=== PATIENT | female | born 1965 | race American Indian/Alaskan Native ===

== ENCOUNTER 2018-02-19 08:17 | Outpatient (CLI) | payer BC | END 2018-02-19 08:18 | disposition home or self-care (01) | LOC: VAS 08:17 | PROVIDERS: ATTEND Internal Medicine | DX: R60.9 Edema, unspecified (principal); I10 Essential (primary) hypertension | CPT/HCPCS: 93970 ==

== ENCOUNTER 2020-05-04 09:54 | Outpatient (CLI) | payer BC ==
--- NOTE | 2020-05-05 08:24 | Mammography Report ---
DIGITAL SCREENING MAMMOGRAM WITH CAD, 05/04/2020 INDICATION: Routine screening mammography. TECHNIQUE: Digital bilateral 2D mammography was obtained in the craniocaudal and mediolateral obliq ue projections. This examination was interpreted with the benefit of Computer-Aided Detection analysi s. COMPARISON: 03/06/2013, 01/02/2012 FINDINGS: Breast Density: The breasts are extremely dense, which lowers the sensitivity of mammography. There is no evidence of dominant mass, suspicious calcifications or architectural distortion in eithe r breast. IMPRESSION: Follow up recommendation: Routine yearly BI-RADS Category 1: Negative. A "normal" or negative report should not discourage follow up or biopsy of a clinically significant f inding. A written summary of these findings will be mailed to the patient. The patient will be entered into a mammography reporting system which will generate a reminder letter for the patient's next appointmen t at the appropriate interval. The [employer] recommends yearly mammograms starting at age 40 and continuing as l leticia as a woman is in good health. Breast MRI is recommended for women with an approximate 20-25% or greater lifetime risk of breast cancer, including women with a strong family history of breast or ova farhan cancer or who have been treated for Hodgkin's disease. Signer Name: Tita Johansen MD Signed: 05/05/2020 8:19 AM Workstation Name: [id number]
== END 2020-05-04 09:55 | disposition home or self-care (01) ==
LOC: SPVWC 09:54
PROVIDERS: ATTEND Internal Medicine
DX: Z12.31 Encounter for screening mammogram for malignant neoplasm of breast (principal); N64.89 Other specified disorders of breast
CPT/HCPCS: 77067

== ENCOUNTER 2021-05-18 21:14 | Observation (INO) | payer BC ==
--- NOTE | 2021-05-18 21:45 | Emergency Department Report ---
ED Chest Pain HPI - General Chief Complaint: Chest Pain Stated Complaint: HIGHBLOOD PRESSURE/HEADACHE PUI?: No Time Seen by Provider: 05/18/21 21:29 Source: patient Mode of arrival: Ambulatory Limitations: No Limitations - History of Present Illness Initial Comments: Patient is a 55-year-old female that presents emergency room with complaints of chest pain, headache. Patient states that her symptoms started approximately 1 hour ago. Patient states that she checked her blood pressure at home and it was 200/100. Patient states her chest pain is a 10 out of 10. Patient states is a tightness feeling. Patient states she feels anxious and jittery. Patient states her chest pain is better with rest and worse with exertion. Patient states that she checks her blood pressure at home and her blood pressure was 200/100 so she came to the hospital because of her symptoms. Patient denies shortness of breath. Patient denies fever and chills. Patient states she has a past medical history of hypertension, hyperlipidemia and a stroke. Patient states she is taking lisinopril and Crestor. Patient that she is compliant with her medications. Patient denies recent travel. Patient denies recent international travel. P atient denies exposure to the novel coronavirus. Patient denies sick contacts. Patient denies fever and chills. Patient denies cough. Patient denies diarrhea. Patient denies coming in contact with anybody with symptoms of the novel coronavirus. Complaint: chest pain -: Sudden Onset: during rest Pain Location: left chest Pain Radiation: none Severity: severe Severity scale (0 -10): 10 Quality: tightness, heaviness Consistency: constant Improves With: rest Worsens With: exertion re: sense of impending doom. denies: nausea, vomting, diaphoresis, dyspnea Other Symptoms: denies: cough, fever, syncope, rash, acid taste in mouth, leg swelling, palpitations, burping Treatments Prior to Arrival: none - Related Data Home Medications Medication Instructions Recorded Confirmed Last Taken Lisinopril/Hydrochlorothiazide 1 tab PO QDAY 04/14/15 04/14/15 Unknown [Zestoretic 20-25 mg] Rosuvastatin (Nf) [Crestor] 20 mg PO QHS 04/14/15 04/14/15 Unknown Allergies Allergy/AdvReac Type Severity Reaction Status Date / Time No Known Allergies Allergy Unverified 04/14/15 21:31 Heart Score - HEART Score History: Moderately suspicious EKG: Non-specific Age: 45-65 Risk factors: > 3 risk factors or hx of atherosclerotic disease Troponin: < normal limit HEART Score: 5 - EKG Read Time Time EKG Completed: 21:26 EKG Read Time: 21:29 ED Review of Systems ROS: Stated complaint: HIGHBLOOD PRESSURE/HEADACHE Other details as noted in HPI Constitutional: denies: chills, fever Eyes: denies: eye pain, eye discharge, vision change ENT: denies: ear pain, throat pain Respiratory: denies: cough, shortness of breath, wheezing Cardiovascular: chest pain. denies: palpitations Endocrine: no symptoms reported Gastrointestinal: denies: abdominal pain, nausea, diarrhea Genitourinary: denies: urgency, dysuria, discharge Musculoskeletal: denies: back pain, joint swelling, arthralgia Skin: denies: rash, lesions Neurological: headache. denies: weakness, paresthesias Psychiatric: anxiety. denies: depression Hematological/Lymphatic: denies: easy bleeding, easy bruising ED Past Medical Hx - Past Medical History Previous Medical History?: Yes Hx Hypertension: Yes Hx CVA: Yes - Surgical History Past Surgical History?: No - Family History Family history: no significant - Social History Smoking Status: Never Smoker Substance Use Type: None - Medications Home Medications: Home Medications Medication Instructions Recorded Confirmed Last Taken Type Lisinopril/Hydrochlorothiazide 1 tab PO QDAY 04/14/15 04/14/15 Unknown History [Zestoretic 20-25 mg] Rosuvastatin (Nf) [Crestor] 20 mg PO QHS 04/14/15 04/14/15 Unknown History ED Physical Exam - General Limitations: No Limitations General appearance: alert, in no apparent distress - Head Head exam: Present: atraumatic, normocephalic - Eye Eye exam: Present: normal appearance - ENT ENT exam: Present: mucous membranes moist - Neck Neck exam: Present: normal inspection - Respiratory Respiratory exam: Present: normal lung sounds bilaterally. Absent: respiratory distress, wheezes, rales, chest wall tenderness - Cardiovascular Cardiovascular Exam: Present: regular rate, normal rhythm. Absent: systolic murmur, diastolic murmur, rubs, gallop - GI/Abdominal GI/Abdominal exam: Present: soft, normal bowel sounds - Extremities Exam Extremities exam: Present: normal inspection - Back Exam Back exam: Present: normal inspection - Neurological Exam Neurological exam: Present: alert, oriented X3 - Psychiatric Psychiatric exam: Present: normal affect, normal mood - Skin Skin exam: Present: warm, dry, intact, normal color. Absent: rash ED Course Vital Signs 05/18/21 05/18/21 05/18/21 21:17 21:50 22:01 Pulse Rate 103 H 98 H 91 H Respiratory 22 25 H 22 Rate Blood Pressure 211/104 193/97 Blood Pressure [Left] O2 Sat by Pulse 99 99 98 Oximetry 05/18/21 05/18/21 05/18/21 22:12 22:15 22:31 Pulse Rate 88 92 H 85 Respiratory 20 18 19 Rate Blood Pressure 171/98 187/96 Blood Pressure 171/98 [Left] O2 Sat by Pulse 99 100 100 Oximetry 05/18/21 05/18/21 05/18/21 22:36 22:37 22:45 Pulse Rate 87 68 Respiratory 20 19 Rate Blood Pressure 183/102 183/102 Blood Pressure [Left] O2 Sat by Pulse 99 100 Oximetry 05/18/21 23:01 Pulse Rate 60 Respiratory 14 Rate Blood Pressure 173/90 Blood Pressure [Left] O2 Sat by Pulse 100 Oximetry - Reevaluation(s) Reevaluation #1: Patient states her chest pain is better. Patient states it has resolved. Patient states she is not as anxious. Patient's blood pressure has improved. Patient's lung sounds are clear. 05/18/21 22:46 Reevaluation #2: I discussed all results with patient. I discussed plan of care with patient. Patient agrees with plan of care and admission. Patient to be admitted to the hospitalist service. 05/18/21 23:46 - Consultations Consultation #1: Hospitalist consulted for admission. Hospitalist to admit patient. 05/18/21 23:46 DARYL score - Daryl Score Age > 65: (0) No Aspirin use within the Past 7 Days: (1) Yes 3 or more CAD Risk Factors: (1) Yes 2 or more Angina events in past 24 hrs: (0) No Known CAD with more than 50% Stenosis: (0) No Elevated Cardiac Markers: (0) No ST Deviation Greater than 0.5mm: (0) No DARYL Score: 2 ED Medical Decision Making - Lab Data Result diagrams: 05/18/21 21:52 05/18/21 21:52 - EKG Data -: EKG Interpreted by Me EKG shows normal: sinus rhythm, axis, intervals, QRS complexes, ST-T waves Rate: normal - Radiology Data Radiology results: report reviewed, image reviewed interpreted by me: Chest x-ray: No pneumonia, no pneumothorax, no foreign body, no osseous findings, no acute findings CHEST 1 VIEW 05/18/2021 9:09 PM INDICATION / CLINICAL INFORMATION: Chest Pain. COMPARISON: None available. FINDINGS: SUPPORT DEVICES: None. HEART / MEDIASTINUM: No significant abnormality. LUNGS / PLEURA: No significant pulmonary or pleural abnormality. No pn eumothorax. ADDITIONAL FINDINGS: No significant additional findings. IMPRESSION: 1. No acute findings. - Medical Decision Making Patient is a 55-year-old female that presents emergency room with complaints of chest pain, anxiety and headache. Patient found to have hypertensive emergency in triage. Patient seen in triage and eventually transferred to the acute care room. After the initial evaluation, the patient was given aspirin and Lopressor. Patient's symptoms and blood pressure dramatically improved. Patient had an EKG done which was negative for acute finding. Patient EKG shows normal ST. Patient had a chest x-ray done which was negative for acute findings. I personally reviewed the EKG and chest x-ray. Patient had labs done which were essentially unremarkable. Patient's troponins were normal and negative. Patient admitted to the hospital service for further evaluation treatment and rule out ACS. Patient's heart score is elevated and will require inpatient rule out and treatment. Critical care time documented due to the multiple reassessments, prolonged time at the bedside, interpretation of diagnostics and labs. - Differential Diagnosis Chest pain, ACS, hypertension, anxiety, hypertensive emergency, Critical Care Time: Yes Critical care time in (mins) excluding proc time.: 35 Critical care attestation.: If time is entered above; I have spent that time in minutes in the direct care of this critically ill patient, excluding procedure time. Critical Care Time: 35 minutes ED Disposition Clinical Impression: Hypertensive emergency, Malignant hypertension Chest pain Qualifiers: Chest pain type: unspecified Qualified Code(s): R07.9 - Chest pain, unspecified Headache Qualifiers: Headache type: unspecified Headache chronicity pattern: acute headache Intractability: not intractable Qualified Code(s): R51.9 - Headache, unspecified Disposition: 09 ADMITTED INPATIENT Is pt being admited?: Yes Does the pt Need Aspirin: No Condition: Critical Instructions: Hypertension (ED) Time of Disposition: 23:52
[2021-05-18] MEDS ORDERED: ASPIRIN 325 MG TAB PO ONE (21:48)
[2021-05-18] MEDS ORDERED: METOPROLOL TARTRATE 5 MG/5 ML INJ IV ONE (21:52)
--- NOTE | 2021-05-18 22:25 | XRay Report ---
CHEST 1 VIEW 05/18/2021 9:09 PM INDICATION / CLINICAL INFORMATION: Chest Pain. COMPARISON: None available. FINDINGS: SUPPORT DEVICES: None. HEART / MEDIASTINUM: No significant abnormality. LUNGS / PLEURA: No significant pulmonary or pleural abnormality. No pneumothorax. ADDITIONAL FINDINGS: No significant additional findings. IMPRESSION: 1. No acute findings. Signer Name: Jimmie Cruz MD Signed: 05/18/2021 10:21 PM Workstation Name: [id number]
[2021-05-18 22:43] LABS: Hematocrit 41.1 % (30.3-42.9); Hemoglobin 12.9 gm/dl (10.1-14.3); Mean Corpuscular HGB Conc 31 % (30-34); Mean Corpuscular Volume 88 fl (79-97); Platelet Count 260 K/mm3 (140-440); Red Blood Count 4.69 M/mm3 (3.65-5.03); Red Cell Distribution Width 14.1 % (13.2-15.2)
[2021-05-18 22:46] LABS: Alanine Aminotransferase 15 units/L (7-56); Albumin 4.3 g/dL (3.9-5); BUN/Creatinine Ratio 11; Blood Urea Nitrogen 11 mg/dL (7-17); Calcium 9.8 mg/dL (8.4-10.2); Hemolysis Index 69; INR 0.9 (0.87-1.13)
[2021-05-18 22:47] LABS: Partial Thromboplastin Time 49.9 Sec. (24.2-36.6)
[2021-05-19 00:46] LABS: Total Cells Counted 100
[2021-05-19 00:47] LABS: Platelet Estimate Consistent w Auto; RBC Morphology Normal
[2021-05-19] MEDS ORDERED: ONDANSETRON 4 MG/2 ML INJ IV PRN (01:05)
[2021-05-19] MEDS ORDERED: MORPHINE 4 MG/1 ML INJ IV PRN ×2 (01:05)
[2021-05-19] MEDS ORDERED: NITROGLYCERIN 0.4 MG TAB SUBL SL PRN (01:05)
[2021-05-19] MEDS ORDERED: MORPHINE 2 MG/1 ML INJ IV PRN (01:05)
[2021-05-19] MEDS ORDERED: ACETAMINOPHEN 325 MG TAB PO PRN ×2 (01:05)
[2021-05-19] MEDS ORDERED: traMADol 50 MG TAB PO PRN (01:05)
[2021-05-19] MEDS ORDERED: MAGNESIUM HYDROXIDE (MOM) ORAL LIQD UDC PO PRN (01:05)
--- NOTE | 2021-05-19 01:18 | History and Physical Report ---
History of Present Illness Date of examination: 05/19/21 Date of admission: 05/19/2021 Chief complaint: Chest pain History of present illness: 55-year-old -[place] female with known history of hypertension, hyperlipidemia and a previous stroke presenting to the emergency room today complaining of left-sided chest pain with some associated headache. Symptoms are said to have started about an hour prior to reporting to the emergency room. Patient indicates that she checked her blood pressure and the systolic was in the 200s and diastolic in the low 100s. Chest pain pain was about 10/10 in severity and felt like tightness. Pain was worse on exertion and feels better upon resting. She denies any diaphoresis, no nausea vomiting, no abdominal pain, no fever or chills. Patient denies any recent travel and no sick contacts. Denies any contact with anyone with COVID-19. Upon arrival in the emergency room blood pressure was quite elevated and she was given some Lopressor and aspirin with significant improvement in her blood pressure. Work-up in the emergency room today including chest x-ray, EKG were unremarkable. Patient being admitted for chest pain evaluation. Past History Past Medical History: hypertension, hyperlipidemia, stroke Past Surgical History: No surgical history Social history: no significant social history Family history: no significant family history Medications and Allergies Allergies Allergy/AdvReac Type Severity Reaction Status Date / Time No Known Allergies Allergy Verified 05/19/21 01:15 Home Medications Medication Instructions Recorded Confirmed Last Taken Type Lisinopril/Hydrochlorothiazide 1 tab PO QDAY 04/14/15 04/14/15 Unknown History [Zestoretic 20-25 mg] Rosuvastatin (Nf) [Crestor] 20 mg PO QHS 04/14/15 04/14/15 Unknown History Active Meds: Active Medications Acetaminophen (Acetaminophen 325 Mg Tab) 650 mg PO Q4H PRN PRN Reason: Pain MILD(1-3)/Fever >100.5/[facility] Review of Systems Constitutional: no fever, no chills Ears, nose, mouth and throat: no nasal congestion, no sore throat Cardiovascular: chest pain, no palpitations, no lightheadedness Respiratory: no cough, no shortness of breath Gastrointestinal: no abdominal pain, no nausea, no vomiting, no diarrhea Genitourinary Female: no pelvic pain, no flank pain, no dysuria, no hematuria Musculoskeletal: no neck pain, no low back pain Integumentary: no rash, no pruritis Neurological: headaches, no confusion Psychiatric: no anxiety, no depression Endocrine: no polyphagia, no polydipsia, no polyuria, no nocturia Exam - Constitutional Vitals: Temp Pulse Resp BP Pulse Ox 98.1 F 60 14 173/90 100 05/19/21 00:27 05/18/21 23:01 05/18/21 23:01 05/18/21 23:01 05/18/21 23:01 General appearance: Present: no acute distress, well-nourished - EENT Eyes: Present: PERRL, EOM intact. Absent: scleral icterus ENT: hearing intact, clear oral mucosa, dentition normal - Neck Neck: Present: supple, normal ROM - Respiratory Respiratory effort: normal Respiratory: bilateral: CTA - Cardiovascular Rhythm: regular Heart Sounds: Present: S1 & S2. Absent: gallop, systolic murmur, diastolic murmur, rub, click - Extremities Extremities: no ischemia, pulses intact, pulses symmetrical, No edema, normal temperature, normal color, Full ROM Peripheral Pulses: within normal limits - Abdominal General gastrointestinal: Present: soft, non-tender, non-distended, normal bowel sounds. Absent: mass - Integumentary Integumentary: Present: clear, warm, dry, normal turgor. Absent: rash - Musculoskeletal Musculoskeletal: strength equal bilaterally - Psychiatric Psychiatric: appropriate mood/affect, intact judgment & insight, memory intact, cooperative - Neurologic Neurologic: CNII-XII intact, no focal deficits, moves all extremities HEART Score - HEART Score History: Moderately suspicious EKG: Non-specific Age: 45-65 Risk factors: > 3 risk factors or hx of atherosclerotic disease Troponin: Troponin T < 0.010 ng/mL (0.00-0.029) 05/18/21 21:52 Troponin: < normal limit HEART Score: 5 Results - Labs CBC & Chem 7: 05/19/21 01:21 05/19/21 01:21 Labs: Abnormal lab results 05/18/21 05/18/21 05/18/21 Range/Units 21:52 21:52 21:52 Seg Neuts % (Manual) 18.0 L (40.0-70.0) % Lymphocytes % (Manual) 75.0 H (13.4-35.0) % Seg Neutrophils # Man 1.2 L (1.8-7.7) K/mm3 APTT 49.9 H (24.2-36.6) Sec. Glucose 124 H (65-100) mg/dL Assessment and Plan - Patient Problems (1) Chest pain Current Visit: Yes Status: Acute Qualifiers: Chest pain type: unspecified Qualified Code(s): R07.9 - Chest pain, unspecified Plan to address problem: Patient admitted and placed on telemetry. We will check serial cardiac enzymes. Patient placed on daily aspirin, sublingual nitroglycerin and IV morphine as needed for chest pain. Will await further evaluation by cardiology. (2) Headache Current Visit: Yes Status: Acute Qualifiers: Headache type: unspecified Headache chronicity pattern: acute headache Intractability: not intractable Qualified Code(s): R51.9 - Headache, unspecified Plan to address problem: Possibly secondary to the elevated blood pressure. We will give analgesic medications as needed We will also aim for blood pressure control. (3) Malignant hypertension Current Visit: Yes Status: Acute Plan to address problem: We will resume routine home medications once reconciled. We will monitor vital signs closely. (4) DVT prophylaxis Current Visit: Yes Status: Acute Plan to address problem: Patient placed on subcutaneous heparin. (5) Full code status Current Visit: Yes Status: Acute Plan to address problem: Patient is a full code.
[2021-05-19 02:01] LABS: Basophils # (Auto) 0.1 K/mm3 (0.0-0.1); Basophils % (Auto) 1.1 % (0.0-1.8); Eosinophils % (Auto) 0.7 % (0.0-4.3); Hematocrit 40.5 % (30.3-42.9); Hemoglobin 13.1 gm/dl (10.1-14.3); Lymphocytes # (Auto) 2.4 K/mm3 (1.2-5.4); Lymphocytes % (Auto) 42.4 % (13.4-35.0); Mean Corpuscular HGB Conc 32 % (30-34); Mean Corpuscular Volume 85 fl (79-97); Monocytes # (Auto) 0.3 K/mm3 (0.0-0.8); Monocytes % (Auto) 5.5 % (0.0-7.3); Platelet Count 272 K/mm3 (140-440); Red Blood Count 4.78 M/mm3 (3.65-5.03); Red Cell Distribution Width 14.2 % (13.2-15.2)
[2021-05-19 02:20] LABS: BUN/Creatinine Ratio 11; Blood Urea Nitrogen 11 mg/dL (7-17); Calcium 10.3 mg/dL (8.4-10.2); Hemolysis Index 8
[2021-05-19] MEDS ORDERED: HEPARIN 5,000 UNIT/1 ML VIAL SUB-Q SCH (06:00)
[2021-05-19] MEDS ORDERED: REGADENOSON 0.4 MG/5 ML INJ IV ONE (06:48)
--- NOTE | 2021-05-19 09:24 | Progress Note ---
Assessment and Plan Assessment and plan: History of present illness: 55-year-old -[place] female with known history of hypertension, hyp erlipidemia and a previous stroke presenting to the emergency room today complaining of left-sided chest pain with some associated headache. Symptoms are said to have started about an hour prior to reporting to the emergency room. Patient indicates that she checked her blood pressure and the systolic was in the 200s and diastolic in the low 100s. Chest pain pain was about 10/10 in severity and felt like tightness. Pain was worse on exertion and feels better upon resting. She denies any diaphoresis, no nausea vomiting, no abdominal pain, no fever or chills. Patient denies any recent travel and no sick contacts. Denies any contact with anyone with COVID-19. Upon arrival in the emergency room blood pressure was quite elevated and she was given some Lopressor and aspirin with significant improvement in her blood pressure. Work-up in the emergency room today including chest x-ray, EKG were unremarkable. Patient being admitted for chest pain evaluation. Hospital Course to Date: Assessment and Plan: (1) Chest pain Current Visit: Yes Status: Acute Qualifiers: Chest pain type: unspecified Qualified Code(s): R07.9 - Chest pain, unspecified Plan to address problem: Patient admitted and placed on telemetry. We will check serial cardiac enzymes. Patient placed on daily aspirin, sublingual nitroglycerin and IV morphine as needed for chest pain. Will await further evaluation by cardiology. (2) Headache Current Visit: Yes Status: Acute Qualifiers: Headache type: unspecified Headache chronicity pattern: acute headache Intractability: not intractable Qualified Code(s): R51.9 - Headache, unspecified Plan to address problem: Possibly secondary to the elevated blood pressure. We will give analgesic medications as needed We will also aim for blood pressure control. (3) Malignant hypertension Current Visit: Yes Status: Acute Plan to address problem: We will resume routine home medications once reconciled. We will monitor vital signs closely. (4) DVT prophylaxis Current Visit: Yes Status: Acute Plan to address problem: Patient placed on subcutaneous heparin. (5) Full code status Current Visit: Yes Status: Acute Plan to address problem: Patient is a full code. History Interval history: no complaints on encounter Hospitalist Physical - Physical exam Narrative exam: General appearance: Present: no acute distress, well-nourished - EENT Eyes: Present: PERRL, EOM intact. Absent: scleral icterus ENT: hearing intact, clear oral mucosa, dentition normal - Neck Neck: Present: supple, normal ROM - Respiratory Respiratory effort: normal Respiratory: bilateral: CTA - Cardiovascular Rhythm: regular Heart Sounds: Present: S1 & S2. Absent: gallop, systolic murmur, diastolic murmur, rub, click - Extremities Extremities: no ischemia, pulses intact, pulses symmetrical, No edema, normal temperature, normal color, Full ROM Peripheral Pulses: within normal limits - Abdominal General gastrointestinal: Present: soft, non-tender, non-distended, normal bowel sounds. Absent: mass - Integumentary Integumentary: Present: clear, warm, dry, normal turgor. Absent: rash - Musculoskeletal Musculoskeletal: strength equal bilaterally - Psychiatric Psychiatric: appropriate mood/affect, intact judgment & insight, memory intact, cooperative - Neurologic Neurologic: CNII-XII intact, no focal deficits, moves all extremities - Constitutional Vitals: Temp Pulse Resp BP Pulse Ox 97.5 F L 98 H 16 117/60 100 05/19/21 08:00 05/19/21 08:00 05/19/21 08:00 05/19/21 08:00 05/19/21 08:59 General appearance: Present: no acute distress, well-nourished HEART Score - HEART Score EKG: Non-specific Age: 45-65 Risk factors: > 3 risk factors or hx of atherosclerotic disease Troponin: Troponin T < 0.010 ng/mL (0.00-0.029) 05/19/21 07:40 Troponin: < normal limit Results - Labs CBC & Chem 7: 05/19/21 01:21 05/19/21 01:21 Labs: Laboratory Last Values WBC 5.6 K/mm3 (4.5-11.0) 05/19/21 01:21 RBC 4.78 M/mm3 (3.65-5.03) 05/19/21 01:21 Hgb 13.1 gm/dl (10.1-14.3) 05/19/21 01:21 Hct 40.5 % (30.3-42.9) 05/19/21 01:21 MCV 85 fl (79-97) 05/19/21 01:21 MCH 27 pg (28-32) L 05/19/21 01:21 MCHC 32 % (30-34) 05/19/21 01:21 RDW 14.2 % (13.2-15.2) 05/19/21 01:21 Plt Count 272 K/mm3 (140-440) 05/19/21 01:21 Lymph % (Auto) 42.4 % (13.4-35.0) H 05/19/21 01:21 [place] % (Auto) 5.5 % (0.0-7.3) 05/19/21 01:21 Eos % (Auto) 0.7 % (0.0-4.3) 05/19/21 01:21 Baso % (Auto) 1.1 % (0.0-1.8) 05/19/21 01:21 Lymph # (Auto) 2.4 K/mm3 (1.2-5.4) 05/19/21 01:21 [place] # (Auto) 0.3 K/mm3 (0.0-0.8) 05/19/21 01:21 Eos # (Auto) 0.0 K/mm3 (0.0-0.4) 05/19/21 01:21 Baso # (Auto) 0.1 K/mm3 (0.0-0.1) 05/19/21 01:21 Add Manual Diff Complete 05/18/21 21:52 Total Counted 100 05/18/21 21:52 Seg Neutrophils % 50.3 % (40.0-70.0) 05/19/21 01:21 Seg Neuts % (Manual) 18.0 % (40.0-70.0) L 05/18/21 21:52 Lymphocytes % (Manual) 75.0 % (13.4-35.0) H 05/18/21 21:52 Monocytes % (Manual) 3.0 % (0.0-7.3) 05/18/21 21:52 Eosinophils % (Manual) 4.0 % (0.0-4.3) 05/18/21 21:52 Nucleated RBC % Not Reportable 05/18/21 21:52 Seg Neutrophils # 2.8 K/mm3 (1.8-7.7) 05/19/21 01:21 Seg Neutrophils # Man 1.2 K/mm3 (1.8-7.7) L 05/18/21 21:52 Band Neutrophils # 0.0 K/mm3 05/18/21 21:52 Lymphocytes # (Manual) 5.0 K/mm3 (1.2-5.4) 05/18/21 21:52 Abs React Lymphs (Man) 0.0 K/mm3 05/18/21 21:52 Monocytes # (Manual) 0.2 K/mm3 (0.0-0.8) 05/18/21 21:52 Eosinophils # (Manual) 0.3 K/mm3 (0.0-0.4) 05/18/21 21:52 Basophils # (Manual) 0.0 K/mm3 (0.0-0.1) 05/18/21 21:52 Metamyelocytes # 0.0 K/mm3 05/18/21 21:52 Myelocytes # 0.0 K/mm3 05/18/21 21:52 Promyelocytes # 0.0 K/mm3 05/18/21 21:52 Blast Cells # 0.0 K/mm3 05/18/21 21:52 WBC Morphology Not Reportable 05/18/21 21:52 Hypersegmented Neuts Not Reportable 05/18/21 21:52 Hyposegmented Neuts Not Reportable 05/18/21 21:52 Hypogranular Neuts Not Reportable 05/18/21 21:52 Smudge Cells Not Reportable 05/18/21 21:52 Toxic Granulation Not Reportable 05/18/21 21:52 Toxic Vacuolation Not Reportable 05/18/21 21:52 Dohle Bodies Not Reportable 05/18/21 21:52 Pelger-Huet Anomaly Not Reportable 05/18/21 21:52 Jeremiah Rods Not Reportable 05/18/21 21:52 Platelet Estimate Consistent w auto 05/18/21 21:52 Clumped Platelets Not Reportable 05/18/21 21:52 Plt Clumps, EDTA Not Reportable 05/18/21 21:52 Large Platelets Not Reportable 05/18/21 21:52 Giant Platelets Not Reportable 05/18/21 21:52 Platelet Satelliting Not Reportable 05/18/21 21:52 Plt Morphology Comment Not Reportable 05/18/21 21:52 RBC Morphology Normal 05/18/21 21:52 Dimorphic RBCs Not Reportable 05/18/21 21:52 Polychromasia Not Reportable 05/18/21 21:52 Hypochromasia Not Reportable 05/18/21 21:52 Poikilocytosis Not Reportable 05/18/21 21:52 Anisocytosis Not Reportable 05/18/21 21:52 Microcytosis Not Reportable 05/18/21 21:52 Macrocytosis Not Reportable 05/18/21 21:52 Spherocytes Not Reportable 05/18/21 21:52 Pappenheimer Bodies Not Reportable 05/18/21 21:52 Sickle Cells Not Reportable 05/18/21 21:52 Target Cells Not Reportable 05/18/21 21:52 Tear Drop Cells Not Reportable 05/18/21 21:52 Ovalocytes Not Reportable 05/18/21 21:52 Helmet Cells Not Reportable 05/18/21 21:52 [place] Bodies Not Reportable 05/18/21 21:52 [place] Rings Not Reportable 05/18/21 21:52 [place] Cells Not Reportable 05/18/21 21:52 Bite Cells Not Reportable 05/18/21 21:52 Crenated Cell Not Reportable 05/18/21 21:52 Elliptocytes Not Reportable 05/18/21 21:52 Acanthocytes (Spur) Not Reportable 05/18/21 21:52 Rouleaux Not Reportable 05/18/21 21:52 Hemoglobin C Crystals Not Reportable 05/18/21 21:52 Schistocytes Not Reportable 05/18/21 21:52 Malaria parasites Not Reportable 05/18/21 21:52 [place] Bodies Not Reportable 05/18/21 21:52 Hem Pathologist Commnt No 05/18/21 21:52 PT 13.2 Sec. (12.2-14.9) 05/18/21 21:52 INR 0.90 (0.87-1.13) 05/18/21 21:52 APTT 49.9 Sec. (24.2-36.6) H 05/18/21 21:52 Sodium 138 mmol/L (137-145) 05/19/21 01:21 Potassium 4.6 mmol/L (3.6-5.0) D 05/19/21 01:21 Chloride 98.9 mmol/L (98-107) 05/19/21 01:21 Carbon Dioxide 26 mmol/L (22-30) 05/19/21 01:21 Anion Gap 18 mmol/L 05/19/21 01:21 BUN 11 mg/dL (7-17) 05/19/21 01:21 Creatinine 1.0 mg/dL (0.6-1.2) 05/19/21 01:21 Estimated GFR > 60 ml/min 05/19/21 01:21 BUN/Creatinine Ratio 11 % 05/19/21 01:21 Glucose 112 mg/dL (65-100) H 05/19/21 01:21 Calcium 10.3 mg/dL (8.4-10.2) H 05/19/21 01:21 Total Bilirubin 0.20 mg/dL (0.1-1.2) 05/18/21 21:52 AST 24 units/L (5-40) 05/18/21 21:52 ALT 15 units/L (7-56) 05/18/21 21:52 Alkaline Phosphatase 90 units/L (35-129) 05/18/21 21:52 Troponin T < 0.010 ng/mL (0.00-0.029) 05/19/21 07:40 Total Protein 7.1 g/dL (6.3-8.2) 05/18/21 21:52 Albumin 4.3 g/dL (3.9-5) 05/18/21 21:52 Albumin/Globulin Ratio 1.5 % 05/18/21 21:52 Active Medications - Current Medications Current Medications: Generic Name Dose Route Start Last Admin Trade Name Freq PRN Reason Stop Dose Admin Acetaminophen 650 mg 05/19/21 01:05 Acetaminophen 325 Mg Tab PO Q4H PRN Pain MILD(1-3)/Fever >100.5/[facility]ENN Aspirin 325 mg 05/20/21 10:00 Aspirin Ec 325 Mg Tab PO QDAY [facility] Atorvastatin Calcium 40 mg 05/19/21 22:00 Atorvastatin 40 Mg Tab PO QHS [facility] Heparin Sodium (Porcine) 5,000 unit 05/19/21 06:00 05/19/21 05:58 Heparin 5,000 Unit/1 Ml Vial SUB-Q 5,000 unit Q8HR [facility] Administration Hydrochlorothiazide 25 mg 05/19/21 10:00 05/19/21 09:07 Hydrochlorothiazide 25 Mg Tab PO Not Given QDAY [facility] Lisinopril 20 mg 05/19/21 10:00 Lisinopril 20 Mg Tab PO QDAY [facility] Magnesium Hydroxide 30 ml 05/19/21 01:05 Magnesium Hydroxide (Mom) Oral Liqd Udc PO Q4H PRN Constipation Morphine Sulfate 2 mg 05/19/21 01:05 Morphine 2 Mg/1 Ml Inj IV Q4H PRN Pain, Moderate (4-6) Morphine Sulfate 4 mg 05/19/21 01:05 Morphine 4 Mg/1 Ml Inj IV Q4H PRN Pain , Severe (7-10) Morphine Sulfate 2 mg 05/19/21 01:05 Morphine 4 Mg/1 Ml Inj IV Q5MIN PRN Chest Pain unrelieved by NTG Nitroglycerin 0.4 mg 05/19/21 01:05 Nitroglycerin 0.4 Mg Tab Subl SL Q5M PRN Chest Pain Ondansetron HCl 4 mg 05/19/21 01:05 Ondansetron 4 Mg/2 Ml Inj IV Q8H PRN Nausea And Vomiting Sodium Chloride 10 ml 05/19/21 10:00 05/19/21 09:07 Sodium Chloride 0.9% 10 Ml Flush Syringe IV Not Given BID [facility]ADELINE Sodium Chloride 10 ml 05/19/21 01:05 Sodium Chloride 0.9% 10 Ml Flush Syringe IV PRN PRN LINE FLUSH Tramadol HCl 50 mg 05/19/21 01:05 Tramadol 50 Mg Tab PO Q6H PRN Pain, Moderate (4-6)
[2021-05-19] MEDS ORDERED: LISINOPRIL 20 MG TAB PO SCH (10:00)
[2021-05-19] MEDS ORDERED: hydroCHLOROthiazide 25 MG TAB PO SCH (10:00)
[2021-05-19] MEDS ORDERED: NON-FORMULARY EACH (Lisinopril/Hydrochlorothiazide [Zestoretic 20-25 Mg] 1 EACH Tablet) PO SCH (10:00)
--- NOTE | 2021-05-19 12:30 | Nuclear Medicine Report ---
APPROVED REPORT Exam: Nuclear Stress Test Indication: Chest pain [id number] Ht: 5 ft 6 in Wt: 157 lbs BSA: 1.80 m2 HR: 45 bpmBMI: 25.33 Rhythm: Sinus Bradycardia Stress Test Details Stress Test: Exercise stress testing was performed using a Marcos protocol. HR Resting HR: 57 bpm Max HR Achieved: 139 bpm Max Heart Rate (APMHR): 167 bpm Target HR (85% APMHR): 141 bpm % of APMHR: 83 Recovery HR: 61 bpm HR response to stress: Normal HR response to stress BP Resting BP: 149/84 mmHg Max BP: 203/94 mmHg Recovery BP: 157/68 mmHg BP response to stress: Abnormal hypertensive response to stress. ECG Resting ECG: Sinus Bradycardia Stress ECG: Sinus Tachycardia ST Change: None Arrhythmia: None Recovery ECG: Sinus Rhythm Recovery ST Change: None Recovery Arrhythmia: None Clinical Reason for Termination: Fatigue Stress Symptoms: None Exercise duration: 9 min 30 sec Exercise capacity: 10.6 METs Overall Exercise Capacity for Age: Good Stress ECG Conclusion Very good exercise capacity, no chest pain, no ST changes and no significant arrhythmias with exercise. Myocardial perfusion images are pending. NM EXAM: Myocardial Perfusion REST/STRESS Imaging Protocol: Rest Tc-99m/Stress Tc-99m 1 day Resting Data Rest SPECT myocardial perfusion imaging was performed in supine position 45 minutes following the intravenous injection of 10 mCi of Tc-99m Myoview. Time of rest injection: 0645 Exercise Stress Time of stress injection: 10:53:54 Gated Stress SPECT was performed 30 minutes after stress injection. The images were gated to evaluate regional wall motion and calculate left ventricular ejection fraction. Study Quality Study: excellent Lung Uptake: Normal Study Data TID = 1.24. Perfusion Wall Motion The rest and stress images show normal left ventricular wall motion. Nuclear Conclusion ECG Findings: negative for ischemia Clinical Findings: negative for ischemia Nuclear Findings: negative for ischemia Exercise Capacity: normal Left Ventricular Function: normal Risk Study: low Normal rest and stress perfusion images, normal left ventricular systolic function, ejection fraction 63%. Normal study. Conclusion Very good exercise capacity, no chest pain, no ST changes and no significant arrhythmias with exercise. Myocardial perfusion images are pending.
--- NOTE | 2021-05-19 12:37 | Consultation ---
History of Present Illness Consult date: 05/19/21 Consult reason: chest pain History of present illness: The patient is a 55-year-old woman with a long history of poorly controlled h ypertension, no prior cardiac history. She presented to the hospital with a chief complaint of lightheadedness which occurred while she was resting at home. When her symptoms began, she decided to take her blood pressure which on several measurements continue to climb from 160 systolic to the 180s. She then came to the emergency room where her systolic blood pressure was over 200. She states that she felt very anxious and also experienced mild mild pressure in her chest, in the emergency room she was evaluated and referred for admission. Initial ECG in the emergency room was a mild sinus tachycardia with no ST or T wave changes. This morning, she has a sinus bradycardia with nonspecific lateral T wave changes. Serial troponin levels x4 were normal. The patient has a very active lifestyle, states that she runs 6 miles about 2-3 times weekly, and participates in marathons. She has done her physical exercise twice during this week, and there has been no limitation in her exercise capacity, and no symptoms on extreme physical exertion. Today, she underwent an exercise thallium stress test, during which she exercised for 9 minutes and 30 seconds of a Marcos protocol. There was no chest pain, and no ST changes of ischemia. Myocardial perfusion images showed normal myocardial perfusion, and normal left ventricular systolic function. Past History Past Medical History: hypertension, hyperlipidemia, stroke Past Surgical History: No surgical history Social history: no significant social history Family history: no significant family history Medications and Allergies Allergies Allergy/AdvReac Type Severity Reaction Status Date / Time No Known Allergies Allergy Verified 05/19/21 01:15 Home Medications Medication Instructions Recorded Confirmed Last Taken Type Aspirin [Aspirin BABY CHEW TAB] 162 mg PO QDAY 05/19/21 05/19/21 05/18/21 History Furosemide [Lasix] 40 mg PO BID PRN 05/19/21 05/19/21 Unknown History hydroCHLOROthiazide [HCTZ] 25 mg PO QDAY 05/19/21 05/19/21 05/18/21 History lisinopriL [Zestril TAB] 40 mg PO QDAY 05/19/21 05/19/21 05/18/21 History Active Meds: Active Medications Acetaminophen (Acetaminophen 325 Mg Tab) 650 mg PO Q4H PRN PRN Reason: Pain MILD(1-3)/Fever >100.5/[place] Aspirin (Aspirin Ec 325 Mg Tab) 325 mg PO QDAY [facility] Atorvastatin Calcium (Atorvastatin 40 Mg Tab) 40 mg PO QHS [facility] Heparin Sodium (Porcine) (Heparin 5,000 Unit/1 Ml Vial) 5,000 unit SUB-Q Q8HR [facility] Last Admin: 05/19/21 05:58 Dose: 5,000 unit Documented by: Hydrochlorothiazide (Hydrochlorothiazide 25 Mg Tab) 25 mg PO QDAY [facility] Last Admin: 05/19/21 09:07 Dose: Not Given Documented by: Lisinopril (Lisinopril 20 Mg Tab) 20 mg PO QDAY [facility] Last Admin: 05/19/21 10:29 Dose: Not Given Documented by: Magnesium Hydroxide (Magnesium Hydroxide (Mom) Oral Liqd Udc) 30 ml PO Q4H PRN PRN Reason: Constipation Morphine Sulfate (Morphine 2 Mg/1 Ml Inj) 2 mg IV Q4H PRN PRN Reason: Pain, Moderate (4-6) Morphine Sulfate (Morphine 4 Mg/1 Ml Inj) 4 mg IV Q4H PRN PRN Reason: Pain , Severe (7-10) Morphine Sulfate (Morphine 4 Mg/1 Ml Inj) 2 mg IV Q5MIN PRN PRN Reason: Chest Pain unrelieved by NTG Nitroglycerin (Nitroglycerin 0.4 Mg Tab Subl) 0.4 mg SL Q5M PRN PRN Reason: Chest Pain Ondansetron HCl (Ondansetron 4 Mg/2 Ml Inj) 4 mg IV Q8H PRN PRN Reason: Nausea And Vomiting Sodium Chloride (Sodium Chloride 0.9% 10 Ml Flush Syringe) 10 ml IV BID [facility] Last Admin: 05/19/21 09:07 Dose: Not Given Documented by: Sodium Chloride (Sodium Chloride 0.9% 10 Ml Flush Syringe) 10 ml IV PRN PRN PRN Reason: LINE FLUSH Tramadol HCl (Tramadol 50 Mg Tab) 50 mg PO Q6H PRN PRN Reason: Pain, Moderate (4-6) Review of Systems Cardiovascular: chest pain, lightheadedness, no orthopnea, no palpitations, no rapid/irregular heart beat, no edema, no syncope, no shortness of breath Physical Examination Vital Signs Pulse Resp BP Pulse Ox 103 H 22 211/104 99 05/18/21 21:17 05/18/21 21:17 05/18/21 21:17 05/18/21 21:17 General appearance: no acute distress HEENT: Positive: PERRL Neck: Positive: neck supple Cardiac: Positive: Reg Rate and Rhythm. Negative: Audible Murmur Lungs: Positive: clear to auscultation Neuro: Positive: Grossly Intact Abdomen: Positive: Soft Female genitourinary: deferred Skin: Positive: Clear Extremities: Absent: edema Results 05/19/21 01:21 05/19/21 01:21 Cardiac Enzymes 05/18/21 Range/Units 21:52 AST 24 (5-40) units/L Coagulation 05/18/21 Range/Units 21:52 PT 13.2 (12.2-14.9) Sec. INR 0.90 (0.87-1.13) APTT 49.9 H (24.2-36.6) Sec. CBC 05/18/21 05/19/21 Range/Units 21:52 01:21 WBC 6.7 5.6 (4.5-11.0) K/mm3 RBC 4.69 4.78 (3.65-5.03) M/mm3 Hgb 12.9 13.1 (10.1-14.3) gm/dl Hct 41.1 40.5 (30.3-42.9) % Plt Count 260 272 (140-440) K/mm3 Lymph # (Auto) Bulk Sugar Handler 2.4 [place] # (Auto) Bulk Sugar Handler 0.3 Eos # (Auto) Bulk Sugar Handler 0.0 Baso # (Auto) Bulk Sugar Handler 0.1 Comprehensive Metabolic Panel 05/18/21 05/19/21 Range/Units 21:52 01:21 Sodium 138 138 (137-145) mmol/L Potassium 3.7 4.6 D (3.6-5.0) mmol/L Chloride 100.0 98.9 (98-107) mmol/L Carbon Dioxide 23 26 (22-30) mmol/L BUN 11 11 (7-17) mg/dL Creatinine 1.0 1.0 (0.6-1.2) mg/dL Glucose 124 H 112 H (65-100) mg/dL Calcium 9.8 10.3 H (8.4-10.2) mg/dL AST 24 (5-40) units/L ALT 15 (7-56) units/L Alkaline Phosphatase 90 (35-129) units/L Total Protein 7.1 (6.3-8.2) g/dL Albumin 4.3 (3.9-5) g/dL EKG interpretations - Telemetry EKG Rhythm: Sinus Rhythm Assessment and Plan - Patient Problems (1) Uncontrolled hypertension Current Visit: Yes Status: Acute Plan to address problem: Patient presented with apparent symptoms of uncontrolled hypertension. Will recommend in addition to her lisinopril and diuretic, addition of amlodipine 5 to 10 mg or nifedipine XL 30 mg. (2) Atypical chest pain Current Visit: Yes Status: Acute Plan to address problem: Chest pain is atypical, nonexertional and not anginal in character. She has undergone extensive cardiac ischemic work-up with negative troponin levels x4, and a normal exercise stress thallium test at a high level of exertion. No further ischemic work-up is indicated, stable for cardiac discharge.
--- NOTE | 2021-05-19 13:42 | Discharge Summary ---
Providers - Providers Date of Admission: 05/18/21 23:52 Date of discharge: 05/19/21 Attending physician: RHEA FRIAS MD 05/19/21 Consult to Cardiac Rehabilitation [CONS] Routine Reason For Exam: Phase I 05/19/21 01:06 Consult to Cardiology [CONS] Routine Consulting Provider: CYNTHIA REAL Reason For Exam: Chest pain Primary care physician: COFFEE ROASTER Hospitalization Reason for admission: chest pain Condition: Fair Hospital course: History of present illness: 55-year-old -[place] female with known history of hypertension, hyperlipidemia and a previous stroke presenting to the emergency room today complaining of left-sided chest pain with some associated headache. Symptoms are said to have started about an hour prior to reporting to the emergency room. Patient indicates that she checked her blood pressure and the systolic was in the 200s and diastolic in the low 100s. Chest pain pain was about 10/10 in severity and felt like tightness. Pain was worse on exertion and feels better upon resting. She denies any diaphoresis, no nausea vomiting, no abdominal pain, no fever or chills. Patient denies any recent travel and no sick contacts. Denies any contact with anyone with COVID-19. Upon arrival in the emergency room blood pressure was quite elevated and she was given some Lopressor and aspirin with significant improvement in her blood pressure. Work-up in the emergency room today including chest x-ray, EKG were unremarkable. Patient being admitted for chest pain evaluation. Hospital Course to Date: The patient is a 55-year-old woman with a long history of poorly controlled hypertension, no prior cardiac history. She presented to the hospital with a chief complaint of lightheadedness which occurred while she was resting at home. When her symptoms began, she decided to take her blood pressure which on several measurements continue to climb from 160 systolic to the 180s. She then came to the emergency room where her systolic blood pressure was over 200. She states that she felt very anxious and also experienced mild mild pressure in her chest, in the emergency room she was evaluated and referred for admission. Initial ECG in the emergency room was a mild sinus tachycardia with no ST or T wave changes. This morning, she has a sinus bradycardia with nonspecific lateral T wave changes. Serial troponin levels x4 were normal. The patient has a very active lifestyle, states that she runs 6 miles about 2-3 times weekly, and participates in marathons. She has done her physical exercise twice during this week, and there has been no limitation in her exercise capacity, and no symptoms on extreme physical exertion. Today, she underwent an exercise thallium stress test, during which she exercised for 9 minutes and 30 seconds of a Marcos protocol. There was no chest pain, and no ST changes of ischemia. Myocardial perfusion images showed normal myocardial perfusion, and normal left ventricular systolic function. She will be d/c home on amlodipine 5 mg po daily and nifedepine xl 30 mg po daily in addition to home anti-HTN medications. per cardiology recommendations. advised to follow up with cardiology in 3-5 days. Assessment and Plan: (1) Chest pain Current Visit: Yes Status: Acute Qualifiers: Chest pain type: unspecified Qualified Code(s): R07.9 - Chest pain, unspecified Plan to address problem: Patient admitted and placed on telemetry. We will check serial cardiac enzymes. Patient placed on daily aspirin, sublingual nitroglycerin and IV morphine as needed for chest pain. Will await further evaluation by cardiology. (2) Headache Current Visit: Yes Status: Acute Qualifiers: Headache type: unspecified Headache chronicity pattern: acute headache Intractability: not intractable Qualified Code(s): R51.9 - Headache, unspecified Plan to address problem: Possibly secondary to the elevated blood pressure. We will give analgesic medications as needed We will also aim for blood pressure control. (3) Malignant hypertension Current Visit: Yes Status: Acute Plan to address problem: We will resume routine home medications once reconciled. We will monitor vital signs closely. (4) DVT prophylaxis Current Visit: Yes Status: Acute Plan to address problem: Patient placed on subcutaneous heparin. (5) Full code status Current Visit: Yes Status: Acute Plan to address problem: Patient is a full code. Disposition: 01 HOME / SELF CARE / HOMELESS Final Discharge Diagnosis (Prints w/discharge instructions): acute coronary syndrome, hypertensive emergency Time spent for discharge: 25 - Discharge Diagnoses (1) Atypical chest pain Status: Acute (2) Hypertensive emergency Status: Acute Core Measure Documentation - Palliative Care Palliative Care/ Comfort Measures: Not Applicable - Core Measures Any of the following diagnoses?: none Exam - Physical Exam Narrative exam: General appearance: Present: no acute distress, well-nourished - EENT Eyes: Present: PERRL, EOM intact. Absent: scleral icterus ENT: hearing intact, clear oral mucosa, dentition normal - Neck Neck: Present: supple, normal ROM - Respiratory Respiratory effort: normal Respiratory: bilateral: CTA - Cardiovascular Rhythm: regular Heart Sounds: Present: S1 & S2. Absent: gallop, systolic murmur, diastolic murmur, rub, click - Extremities Extremities: no ischemia, pulses intact, pulses symmetrical, No edema, normal temperature, normal color, Full ROM Peripheral Pulses: within normal limits - Abdominal General gastrointestinal: Present: soft, non-tender, non-distended, normal bowel sounds. Absent: mass - Integumentary Integumentary: Present: clear, warm, dry, normal turgor. Absent: rash - Musculoskeletal Musculoskeletal: strength equal bilaterally - Psychiatric Psychiatric: appropriate mood/affect, intact judgment & insight, memory intact, cooperative - Neurologic Neurologic: CNII-XII intact, no focal deficits, moves all extremities - Constitutional Vitals: Temp Pulse Resp BP Pulse Ox 97.5 F L 98 H 16 117/60 100 05/19/21 08:00 05/19/21 08:00 05/19/21 08:00 05/19/21 08:00 05/19/21 08:59 Plan Diet: low fat, low cholesterol, low salt Follow up with: PRIMARY CARE, [Primary Care Provider] - 3-5 Days Prescriptions: amLODIPine 5 mg PO DAILY 30 Days #30 tab NIFEdipine XL [Procardia Xl] 30 mg PO QDAY 30 Days #30 tablet
[2021-05-19] MEDS ORDERED: NON-FORMULARY EACH (Rosuvastatin (Nf) 20 MG Tablet) PO SCH (22:00)
[2021-05-20] MEDS ORDERED: ASPIRIN EC 325 MG TAB PO SCH (10:00)
[2021-05-20 11:15] VITALS: BP 157/88
--- NOTE | 2021-05-20 14:08 | Electrocardiograph Report ---
[facility] Test Date: 2021-05-18 Test Time: 21:26:34 Pat Name: GERA RODGERS Department: Room: A484 1 Gender: F Last Ironer: [id number] : 1965 Requested By: MAGGIE MAE III Order Number: [id number] Reading MD: Khang Gallegos Measurements Intervals [place] Rate: 96 P: 39 VA: 152 QRS: 37 QRSD: 87 T: 36 QT: 367 QTc: 465 Interpretive Statements Sinus rhythm Left atrial enlargement Otherwise normal ECG No previous ECG available for comparison Electronically Signed On 05-20-2021 14:07:53 EDT by Khang Gallegos
--- NOTE | 2021-05-20 14:09 | Electrocardiograph Report ---
[facility] Test Date: 2021-05-19 Test Time: 07:08:19 Pat Name: GERA RODGERS Department: Room: A484 1 Gender: F Food Service Supervisor: ANTHONY : 1965 Requested By: NATTY LOPEZ Order Number: [id number] Reading MD: Khang Gallegos Measurements Intervals [place] Rate: 50 P: 51 MA: 174 QRS: 21 QRSD: 100 T: 56 QT: 461 QTc: 422 Interpretive Statements Sinus bradycardia Probable left atrial enlargement Nonspecific T wave abnormality Compared to ECG 05/18/2021 21:26:34 Sinus rate has decreased Nonspecific T wave abnormality now evident in the lateral precordial leads Electronically Signed On 05-20-2021 14:09:19 EDT by Khang Gallegos
--- NOTE | 2021-05-20 14:10 | Electrocardiograph Report ---
[facility], [place] Test Date: 2021-05-19 Test Time: 07:27:54 Pat Name: GERA RODGERS Department: Room: A484 1 Gender: F [employer] Analyst: gladis : 1965 Requested By: RHEA FRIAS Order Number: [id number] Reading MD: Khang Gallegos Measurements Intervals [place] Rate: 60 P: 54 SC: 173 QRS: 17 QRSD: 104 T: 58 QT: 465 QTc: 464 Interpretive Statements Sinus rhythm Probable left atrial enlargement Nonspecific T abnrm, anterolateral leads Compared to ECG 05/19/2021 07:08:19 No significant change Electronically Signed On 05-20-2021 14:10:15 EDT by Khang Gallegos
== END 2021-05-19 15:59 | disposition home or self-care (01) ==
LOC: ED 21:14 → 4A 23:52
PROVIDERS: ADMIT Internal Medicine Geriatric Medicine; ATTEND Internal Medicine
DX: I16.1 Hypertensive emergency (principal); R07.89 Other chest pain; R51.9 Headache, unspecified; I10 Essential (primary) hypertension; E78.5 Hyperlipidemia, unspecified; Z86.73 Personal history of transient ischemic attack (TIA), and cerebral infarction without residual deficits
CPT/HCPCS: 36415; 71045; 78452; 80048; 80053; 84484; 85025; 85610; 85730; 93005; 93017; 93306; 96372; 96374; 99291; A9502; G0378; J1644; 85007